=== PATIENT | female | born 1960 | race Caucasian/White ===

== ENCOUNTER 2017-05-11 11:28 | Outpatient (CLI) | payer OTHER ==
[~2017-05-11 11:28] MED LIST: DILANTIN100 MG PO; KEPPRA500 MG PO; LEVO-T25 MCG PO; PROZAC20 MG PO; VASOTEC2.5 MG PO
== END 2017-05-11 11:37 | disposition home or self-care (01) ==
LOC: SONOGRAMA 11:28
DX: N84.0 Polyp of corpus uteri (principal)